=== PATIENT | male | born 1985 | race Caucasian/White ===

== ENCOUNTER 2021-05-15 17:44 | Emergency (ER) | payer OTHER ==
[~2021-05-15] VITALS: Ht 185.4 cm; Wt 108.9 kg
[2021-05-15] MEDS ORDERED: BACTRIM DS TAB1 EAC1 PO (18:13)
[2021-05-15 18:15] VITALS: BP 148/65
== END 2021-05-15 18:17 | disposition home or self-care (01) ==
LOC: M.ERS 17:44
DX: L03.116 Cellulitis of left lower limb (principal)